=== PATIENT | female | born 1970 | race Caucasian/White ===

== ENCOUNTER 2018-12-18 10:07 | Observation (INO) | payer OTHER ==
--- NOTE | 2018-12-18 10:40 | RAD ---
CHEST ONE VIEW: History: Chest pain. Comparison: None. FINDINGS: There is increased density over both lung bases, may be due to increased breast density. No pneumotho rax. No effusion. No airspace consolidation. No acute osseous abnormality. IMPRESSION: No acute intrathoracic abnormality. POS: [facility]
[2018-12-18 10:52] LABS: #Basophils 0.1 thou/uL (0.0-0.2); #Eosinphils 0.1 thou/uL (0.0-0.7); #Lymphocytes 1.7 thou/uL (1.20-3.40); #Monocytes 0.4 thou/uL (0.11-0.59); #Neutrophils 1.7 thou/uL (1.40-6.50); %Basophils 2.4 % (0.0-1.0); %Eosinophils 1.8 % (0.0-10.0); %Lymphocytes 42.1 % (21.0-51.0); %Monocytes 10.7 % (0.0-10.0); %Neutrophils 42.9 % (42.0-75.0); Hemoglobin 14.5 g/dL (12.0-16.0); Mean Corpuscular HGB CONC 33.4 g/dL (32.0-36.0); Mean Corpuscular Hemoglobin 30.9 pg (27.0-31.0); Mean Corpuscular Volume 92.4 fL (78.0-98.0); Platelet Count 193 thou/uL (130-400); RBC Distribution Width 11.9 % (11.5-14.5); White Blood Cell (WBC) Count 4.1 thou/uL (4.8-10.8)
[2018-12-18] MEDS ORDERED: Nitroglycerin 0.4 MG TAB (25 Tab Bottle) ONE (10:55)
[2018-12-18] MEDS ORDERED: Aspirin Chewable 81 MG TAB ONE (10:56)
[2018-12-18] MEDS ORDERED: Nitroglycerin 2% Ointment 1 INCH/1 GM Packet ONE (10:56)
[2018-12-18 11:06] LABS: ALT (SGPT) 16 U/L (8-55); AST (SGOT) 24 U/L (5-34); Albumin 4.6 g/dL (3.5-5.0); Alkaline Phosphatase 57 U/L (40-150); Anion Gap 15 mmol/L (10-20); BUN (Urea Nitrogen) 11 mg/dL (7.0-18.7); Bilirubin, Total 0.6 mg/dL (0.2-1.2); CK (CPK) 77 U/L (29-168); Calc. Creatinine Clearance 0 mL/min (70-130); Calcium 9.9 mg/dL (7.8-10.44); Carbon Dioxide 23 mmol/L (22-29); Chloride 108 mmol/L (98-107); Estimated GFR-MDRD 75; Globulin 2.9 g/dL (2.4-3.5); Glucose 92 mg/dL (70-105); Lipase 22 U/L (8-78); Potassium 3.8 mmol/L (3.5-5.1); Protein, Total 7.5 g/dL (6.0-8.3); Sodium 142 mmol/L (136-145)
[2018-12-18] MEDS ORDERED: Acetaminophen 500 MG TAB ONE (11:23)
[2018-12-18] MEDS ORDERED: Enoxaparin Sodium 60 MG/0.6 ML SYRINGE ONE (11:57)
[2018-12-18 15:54] VITALS: BMI 17.7
[2018-12-18] MEDS ORDERED: Acetaminophen 325 MG TAB PO PRN ×2 (16:14→16:46)
[2018-12-18] MEDS ORDERED: Ondansetron ODT 4 MG TAB SL PRN (16:14)
[2018-12-18] MEDS ORDERED: Ondansetron PF 4 MG/2 ML Vial IVP PRN ×2 (16:14→16:46)
[2018-12-18] MEDS ORDERED: Senokot S 8.6-50 MG TAB PO PRN (16:46)
[2018-12-18] MEDS ORDERED: Ondansetron ODT 4 MG TAB PO PRN (16:46)
[2018-12-18] MEDS ORDERED: Nitroglycerin 0.4 MG TAB (25 Tab Bottle) PO PRN (16:46)
[2018-12-18] MEDS ORDERED: Acetaminophen 650 MG Suppository PR PRN (16:46)
[2018-12-18 17:32] LABS: Troponin I Less than 0.010 ng/mL (< 0.028)
[2018-12-18] MEDS: Topiramate 25 MG TAB PO SCH (20:14)
[2018-12-18] MEDS: Famotidine 20 MG TAB PO SCH (20:14)
--- NOTE | 2018-12-18 20:39 | HP ---
PRIMARY CARE PHYSICIAN: Lizabeth Olsen. CHIEF COMPLAINT: Chest pain. HISTORY OF PRESENT ILLNESS: This is a 48-year-old white female, without any history of high blood pressure, hyperlipidemia, or heart disease, who presented with chest pain. Chest pain was sudden onset while she was in the shower. It was the sharp/squeezing chest pain centrally substernally radiating between her shoulder blades. The pain was constant. She states she might have had a little shortness of breath, but she does not know if that was because she was feeling a little anxious and that her left arm felt a little bit funny, but not necessarily numb or tingly and no pain in it. The pain in her chest did not move anywhere. States it was persistent for about 45 minutes until she got to the emergency room. In the ER , she was given a couple of doses of nitroglycerin, which seemed to help the pain and the pain had slowly resolved since then. She did take a couple of baby aspirin at home. The patient denied any other associated symptoms. No diaphoresis. No nausea or vomiting. She has never had this pain before. PAST MEDICAL HISTORY: 1. Recurrent migraines, since she was young, on suppressive therapy. 2. Previous hyperthyroidism, resolved with dietary changes. PAST SURGICAL HISTORY: Breast augmentation. SOCIAL HISTORY: No history of tobacco use. She does drink a couple of glasses of wine per night. No illicit drugs. She is . Her is present in the room with her. FAMILY HISTORY: Her father smoked heavily and had to have bypass surgery in his early to mid 50s and later much later of COPD. No other medical problems in the family. ALLERGIES: NO KNOWN DRUG ALLERGIES. CURRENT MEDICATIONS: Topiramate 50 mg twice a day. REVIEW OF SYSTEMS: CONSTITUTIONAL: No fevers, no chills. EYES: She has had some blurred vision recently along with some dry eyes and has been thinking about going to the eye doctor. ENT: No congestion, drainage, or sore throat. CARDIOVASCULAR: See HPI. PULMONARY: No coughing or wheezing. No current shortness of breath. GASTROINTESTINAL: No abdominal pain. No nausea or vomiting. No diarrhea or constipation. GENITOURINARY: No dysuria or hematuria. MUSCULOSKELETAL: No muscle aches or joint pains. No back pain. SKIN: No rashes or lesions noted. NEUROLOGIC: See HPI. No other numbness, tingling, or focal weakness. PSYCHIATRIC: The patient does report having some anxiety on and off and that she states she has been under a tremendous amount of stress for the past year. PHYSICAL EXAMINATION: VITAL SIGNS: Blood pressure 126/74, pulse 75, respirations 16, O2 saturation 97 % on room air, and temperature 98.4. GENERAL: This is a well-developed, well-nourished white female, in no acute distress. HEENT: Pupils equal, round, and reactive to light. Oropharynx clear without lesions, erythema, or exudate. NECK: Supple. No lymphadenopathy. No thyroid nodules or enlargement. No JVD. HEART: Regular rate and rhythm. No murmurs, rubs, or gallops. LUNGS: Clear to auscultation bilaterally. No wheezes, crackles, or rhonchi. No chest wall tenderness to palpation. ABDOMEN: Soft, nontender to palpation. Normoactive bowel sounds. No hepatosplenomegaly or other masses. EXTREMITIES: No clubbing, cyanosis, or edema. Good peripheral pulses. SKIN: No rashes or other lesions noted. NEUROLOGIC: She has intact strength and sensation in all extremities. 2+ reflexes in all extremities. No facial droop. PSYCHIATRIC: Alert and oriented x3. Normal mood and affect. LABORATORY DATA: CBC is grossly normal. Complete metabolic panel is grossly normal as well and troponin is negative x2 thus far. IMAGING STUDIES: EKG, I did review both EKGs done in the emergency room. They do show normal sinus rhythm with question of some mild ST-segment changes mentioned on the first EKG, it resolved on the second EKG. Looking at both EKGs, there are some borderline normal ST and T-wave flattening; however, I do not see anything that indicates acute ischemia. I do not really see any specific changes between the EKGs either after the introduction of nitroglycerin. Chest x-ray. I did review the chest x-ray done in the emergency room along with the radiologist's report, does show clear lung tabares and no evidence of cardiovascular disease. ASSESSMENT: 1. Chest pain. The patient's chest pain is atypical, but did respond to some nitroglycerin in the emergency room. Only risk factor for heart disease is her father's coronary artery disease early that was stimulated by his heavy smoking. I do think she does deserve a rule out observation overnight. We will continue trending her troponins, make sure they do not bump and monitor on the color television console monitor overnight to make sure she does not have any recurrence of the chest pain. Should she be chest pain free in the morning and without any changes in those, then she can likely be discharged home and have Cardiology followup as an outpatient. If she continues to have any further episodes of chest pain or any changes on her cardiac markers or her telemetry monitoring then she may benefit from a stress test in the morning or a Cardiology consult inhouse. 2. History of hyperthyroidism. We will check a TSH here in the hospital to make sure it is still normal. 3. Gastrointestinal prophylaxis. Put the patient on Pepcid twice a day. 4. Frequent migraines. We will continue the patient's topiramate. 5. Deep venous thrombosis prophylaxis. We will have the patient ambulate frequently and put her on SCDs while she is in bed. 6. Code status. The patient is a full code. Should she be incapacitated, her would be her medical decision maker, his name is Lul Michaels. Job ID: [id number] [facility]
[2018-12-19 05:54] LABS: #Basophils 0.1 thou/uL (0.0-0.2); #Eosinphils 0.1 thou/uL (0.0-0.7); #Lymphocytes 2.3 thou/uL (1.20-3.40); #Monocytes 0.6 thou/uL (0.11-0.59); #Neutrophils 2.4 thou/uL (1.40-6.50); %Basophils 1.1 % (0.0-1.0); %Eosinophils 2.6 % (0.0-10.0); %Lymphocytes 41.5 % (21.0-51.0); %Monocytes 11.5 % (0.0-10.0); %Neutrophils 43.3 % (42.0-75.0); Hemoglobin 14.2 g/dL (12.0-16.0); Mean Corpuscular HGB CONC 33.9 g/dL (32.0-36.0); Mean Corpuscular Hemoglobin 32.3 pg (27.0-31.0); Mean Corpuscular Volume 95.4 fL (78.0-98.0); Mean Platelet Volume 8.1 fL (7.4-10.4); Platelet Count 203 thou/uL (130-400); RBC Distribution Width 11.5 % (11.5-14.5); White Blood Cell (WBC) Count 5.5 thou/uL (4.8-10.8)
[2018-12-19 06:23] LABS: Anion Gap 12 mmol/L (10-20); BUN (Urea Nitrogen) 12 mg/dL (7.0-18.7); Calc. Creatinine Clearance 61 mL/min (70-130); Calcium 10.3 mg/dL (7.8-10.44); Carbon Dioxide 23 mmol/L (22-29); Cardiac Risk 2.8 (Less than 4.5); Chloride 109 mmol/L (98-107); Cholesterol 204 mg/dl (< 200 Desired); Estimated GFR-MDRD 66; Glucose 95 mg/dL (70-105); HDL Cholesterol 74 mg/dL (>60 Neg Risk); LDL Cholesterol, Calculated 105 mg/dL; Potassium 3.3 mmol/L (3.5-5.1); Sodium 141 mmol/L (136-145); Triglycerides 123 mg/dL (Less than 150)
--- NOTE | 2018-12-19 07:44 | PDOC.PN ---
- Subjective Encounter Start Date: 12/19/18 Encounter Start Time: 10:00 Subjective: No more chest pain. No SOB. Eating well. - Objective Resuscitation Status - Order Detail: 12/18/18 16:41 Resuscitation Status Routine Resuscitation Status: FULL: Full Resuscitation MAR Reviewed: Yes Vital Signs & Weight: Vital Signs (12 hours) Temp Pulse Resp BP Pulse Ox 12/19/18 04:10 97.8 F 69 16 124/69 97 12/18/18 23:50 98.6 F 67 12 131/68 97 Weight Weight 111 lb 9.6 oz I&O: 12/18/18 12/19/18 12/20/18 06:59 06:59 06:59 Intake Total 760 Balance 760 Result Diagrams: 12/19/18 04:25 12/19/18 04:25 Phys Exam - Physical Examination Constitutional: NAD HEENT: moist MMs Respiratory: no wheezing, no rales, no rhonchi Cardiovascular: RRR, no significant murmur Gastrointestinal: soft, positive bowel sounds Neurological: non-focal, moves all 4 limbs Psychiatric: normal affect, A&O x 3 Dx/Plan (1) Chest pain, rule out acute myocardial infarction Code(s): R07.9 - CHEST PAIN, UNSPECIFIED Status: Resolved Comment: no further chest pain, atypical without troponin elevation, no significant ST changes on EKG, can f/u with cardiology outpatient, suspect patient may have had anxiety or a panic attack due to life stressors (2) Hypercholesteremia Code(s): E78.00 - PURE HYPERCHOLESTEROLEMIA, UNSPECIFIED Status: Acute Comment: minimally elevated, will recommend low dose statin (3) History of hyperthyroidism Code(s): Z86.39 - PERSONAL HISTORY OF ENDO, NUTRITIONAL AND METABOLIC DISEASE Status: Inactive Comment: TSH normal - Plan cont current plan of care, DVT proph w/SCDs can d/c home, f/u with cardiology outpatient * . - Discharge Day Encounter end time: 10:10
[2018-12-19] MEDS ORDERED: Potassium Chloride 20 MEQ TAB PO SCH (08:00)
[2018-12-19 08:16] VITALS: BP 126/77; TEMP 97.3
[2018-12-19] MEDS ORDERED: Aspirin 325 MG TAB PO SCH (09:00)
[2018-12-19] MEDS: Famotidine 20 MG TAB PO SCH (09:16)
[2018-12-19] MEDS: Topiramate 25 MG TAB PO SCH (09:16)
[2018-12-19] MEDS ORDERED: Atorvastatin Calcium 10 MG TAB PO SCH (21:00)
--- NOTE | 2018-12-19 22:32 | DIS ---
DATE OF ADMISSION: 12/18/2018 DATE OF DISCHARGE: 12/19/2018 PRIMARY CARE PHYSICIAN: Lizabeth Olsen. REASON FOR ADMISSION: Chest pain, rule out. DIAGNOSES AT DISCHARGE: 1. Chest pain, noncardiac. 2. Hypercholesterolemia, mild. 3. History of hyperthyroidism, now normal. PROCEDURES: None. CONSULTATIONS: None. SUMMARY OF HOSPITAL COURSE: This is a 48-year-old white female with no past medical history of hypertension, hyperlipidemia, heart disease or diabetes. She developed sudden onset chest pain while she was in the shower, centrally located, sharp and squeezing, radiating between her shoulder blades. It lasts for about 45 minutes and relieved in the emergency room. She had no more chest pain during her hospitalization. Her EKG had some mild ST abnormalities but nothing significant, had no changes on telemetry monitoring overnight. She had no elevations of her troponins, was asymptomatic at the time of discharge and is being discharged home. She did have some very mild hypercholesterolemia with total cholesterol of 204 and LDL of 105. Her HDL was elevated at 74, however. We did check a TSH during hospitalization, which was normal due to a previous history of hyperthyroidism that resolved with dietary changes. DISCHARGE MANAGEMENT: Discharged home. FOLLOWUP: Follow up with Dr. Ordonez in 1 to 2 weeks. ACTIVITY: As tolerated. DIET: Healthy heart diet. MEDICATIONS: Atorvastatin 10 mg each night, 30 tablets dispensed. Job ID: [id number]
== END 2018-12-19 12:14 | disposition home or self-care (01) ==
LOC: SCSER 10:07 → 2SW 11:56
PROVIDERS: ADMIT Internal Medicine; ATTEND Internal Medicine
DX: R07.89 Other chest pain (principal); E78.00 Pure hypercholesterolemia, unspecified; G43.909 Migraine, unspecified, not intractable, without status migrainosus; Z86.39 Personal history of other endocrine, nutritional and metabolic disease
CPT/HCPCS: 36415; 71045; 80048; 80053; 80061; 82550; 83690; 84443; 84484; 85025; 93005; 94760; 96372; G0378; J1650